=== PATIENT | female | born 1940 | race Caucasian/White ===

== ENCOUNTER 2024-12-03 14:19 | Inpatient (IN) | payer OTHER, SELFPAY ==
[2024-12-03 10:16] VITALS: BP 172/89
[2024-12-03 11:17] VITALS: BMI 45.0
[2024-12-03 11:49] LABS: % Basophils 0.3 % (0-2); % Eosinophils 0.9 % (0-6); % Immature Granulocytes 0.3 % (0-0.5); % Lymphocytes 11.8 % (20.5-51.1); % Monocytes 8.2 % (1.7-9.3); % Neutrophils 78.5 % (42.2-75.2); Absolute Eosinophils 0.1 10^3/uL (0-0.7); Absolute Lymphocytes 1.4 10^3/uL (1.2-3.4); Absolute Neutrophils 9.1 10^3/uL (1.4-6.5); Hematocrit 42.1 % (37.0-47.0); Mean Corp Hgb Conc. 33.3 g/dL (33.0-37.0); Mean Corpuscular Hgb 29.5 pg (27.0-31.0); Mean Corpuscular Volume 88.6 fL (81.0-99.0); Mean Platelet Volume 10.8 fL (7.4-10.4); Nucleated Red Blood Cells % 0 %; Platelet Count 215 10^3/uL (130-400); Red Blood Cell Count 4.75 10^6/uL (4.20-5.40); Red Cell Dist. Width 13.7 % (11.5-14.5); White Blood Cell Count 11.6 10^3/uL (4.8-10.8)
[2024-12-03 12:04] LABS: ALT (SGPT) 18 U/L (0-35); AST (SGOT) 22 U/L (14-36); Alkaline Phosphatase 79 U/L (38-126); Blood Urea Nitrogen 21 mg/dl (7-17); Calcium 9.2 mg/dl (8.4-10.2); Carbon Dioxide 26 mmol/L (22-30); Chloride 105 mmol/L (98-107); Estimated Creatinine Clearance 68 ml/min; Glucose 112 mg/dl (70-99); Potassium 4.1 mmol/L (3.5-5.1); Sodium 139 mmol/L (135-145); Total Bilirubin 1.2 mg/dl (0.2-1.3); Total Protein 6.8 g/dl (6.3-8.2); eGFR > 60.00
[2024-12-03] MEDS: PROTONIX IV 40 MG IV ×2 (13:30→20:49)
--- NOTE | 2024-12-03 13:32 | ED.GENMED ---
History of Present Illness
General
Chief Complaint: Rectal Bleeding
Source: patient
Exam Limitations: none
Time Seen by Provider: 12/03/24 10:44
Nursing documentation reviewed up to this point in time: agreed with
History of Present Illness
History of Present Illness:
Patient presents to ED after 2 episodes of noting blood clots when she went to the bathroom this morning. Patient reports multiple episodes of vomiting and nonbloody diarrhea yesterday, which has improved. Denies previous history of similar
symptoms. Denies dizziness or weakness. Denies shortness of breath. Denies trauma. Denies recent change in medications or diet. Denies taking any blood thinning medications.
Past History
Past History
ED Past Medical History: HTN, Hypothyroidism and Other (Restless leg syndrome)
ED Past Surgical History: Gynecological (d&c) and Orthopedic (12/11 L4-5, S1 laminectomy fusion with bilateral instrumentation by Dr. Quevedo)
Social History
Tobacco: Non-smoker
Alcohol: None
Drug: None
Personal:
Living: alone
Review of Systems
Review of Systems
Allergies reviewed?: Yes
All Other Systems: ROS reviewed and negative except as documented in HPI and ROS
Constitutional: Reports no symptoms
EENT: Reports no symptoms
Respiratory: Reports no symptoms
ABD/GI: Reports nausea, vomiting and diarrhea
Musculoskeletal: Reports no symptoms
Skin: Reports no symptoms
Neurological: Reports no symptoms
Phy Exam
Physical Exam
Physical Exam:
Physical Exam
General: mild distress, not acutely ill. afebrile.
Head: nc/at. eomi
Neck: supple. no meningeal signs.
Heart: s1/s2 regular rate and rhythm
Lungs: no acute respiratory distress. clear bilaterally
Abdomen: normal bowel sounds. not tender. no distention. rectal exam (MAXIMILIAN Garcia tech, at bedside): dark red stool, grossly heme positive
Neuro: alert and oriented x 3. no focal neurological deficits
Skin: no rash
Psychiatric: well kept. interactive and cooperative
Extremities: no edema. no calf tenderness.
Course
Orders/Labs/Results
Orders:
Orders
12/03/24 11:32
ABO2 Urgent
BBK Wristband Number:
Associate notified that ABO2 has been ordered: [id number]
Date: 12/03/24
Time: 12:39
Mail List Librarian ID: [id number]
Complete Blood Count/With Diff Urgent
Comprehensive Metabolic Panel Urgent
12/03/24 12:22
Type+Screen Urgent
BBK Wristband Number:
12/03/24 13:12
Pantoprazole [Protonix IV] 40 mg IV NOW STA
12/03/24 14:05
Admit/Transfer Patient As Directed
Co-Sign Provider:
Level of Care: Inpatient admission
Assign to:: Medical/Surgical
Physician / Group: Blaine Soni
Diagnosis: GI bleed
Reason for Hospitalization: GI bleed
Expected length of stay greater than two midnights?: Yes
ELOS- Estimated Length of Stay in days: 3
I certify the patient meets the requirements for IP care: Yes
PRN Pain Medication Management As Directed
May give lesser potent ordered pain med per pt: Yes
preference::
Protocol:: Medication orders for pain may be administered in a
manner that supports deferring to patient preference
when the pt is:
- Requesting an ordered lesser potent pain medication.
Least to most potent pain medications are defined
as: acetaminophen < NSAID < tramadol < opioids
(morphine, oxycodone, hydromorphone).
- Requesting a lesser dose of the same medication IF
ORDERED.
- Requesting a less intrusive route of administration
if both routes are prescribed by the provider (PO <
IV).
05/01/25 14:06
Code Status As Directed
Resuscitation Status: Full Code
12/03/24 16:21
GASTROINTESTINAL CONSULT Routine
Consulting Provider: Sudeep Ross
Was physician already notified: Yes
Reason for consult: gi bleed
Activity As Directed
Activity Level: As Tolerated
INT (Intravenous Needle Therapy) As Directed
Comment: Place 2 IV catheters of the largest bore possible until stable
Pneumatic Compression Sleeves As Directed
Type: Knee high
Vital Signs As Directed
Frequency: Per unit guidelines
DX Deep Vein Thrombosis Video Routine
12/03/24 18:00
Ropinirole [Requip] 1 mg PO DAILY@1800
12/03/24 20:00
Pantoprazole [Protonix IV] 40 mg IV BID
Propranolol [Inderal] 80 mg PO BID
12/04/24 06:00
Levothyroxine [Synthroid] 50 mcg PO DAILY@0600
12/04/24 07:28
Basic Metabolic Panel IN AM
Complete Blood Count/No Diff IN AM
12/05/24 06:00
Basic Metabolic Panel IN AM
Complete Blood Count/No Diff IN AM
Abnormal Lab Results
12/03/24
11:32
WBC 11.6 H 10^3/uL
(4.8-10.8)
MPV 10.8 H fL
(7.4-10.4)
Absolute Neuts (auto) 9.1 H 10^3/uL
(1.4-6.5)
Absolute Monos (auto) 1.0 H 10^3/uL
(0.1-0.6)
Neutrophils % 78.5 H %
(42.2-75.2)
Lymphocytes % 11.8 L %
(20.5-51.1)
BUN 21 H mg/dl
(7-17)
Glucose 112 H mg/dl
(70-99)
12/03/24 11:32
12/03/24 11:32
Vital Signs
Initial and Last Documented VS:
Initial Vital Signs
Temp Pulse Resp BP Pulse Ox
98.8 F 63 16 172/89 94
12/03/24 10:16 12/03/24 10:16 12/03/24 10:16 12/03/24 10:16 12/03/24 10:16
Last Documented Vital Signs
Temp Pulse Resp BP Pulse Ox
98.5 F 59 20 159/76 95
12/04/24 07:30 12/04/24 08:26 12/04/24 07:30 12/04/24 07:30 12/04/24 08:00
MDM/Problems Addressed
MDM/Problems Addressed:
H&H noted. Patient remains hemodynamically stable. Patient without any further vomiting nor bloody bowel movements in ED.
Discussed with on-call GI physician,
*Critical Care Note
Total Time (30-74mins, 75-104mins- exclusive of procedures): Not Applicable
ED Attending Note
-
Portions of this chart may have been created with voice recognition software.� Occasional wrong word or��sound alike� substitutions may have occurred due to the inherent limitations of voice recognition software.
Discharge Plan
Departure
Patient Disposition: Admit
Date of Disposition: 12/03/24
Time of Disposition: 13:37
Admit to: Telemetry
Presentation/result/management discussed w/ accepting MD/DO: Hospitalist
Discharge Problem:
GI (gastrointestinal bleed)
Interventions
Interventions:
*Risk Screen - Suicide Last Done: 12/03/24 10:16
*General Assessment Last Done: 12/03/24 11:18
*Neglect/Abuse Screening Last Done: 12/03/24 10:16
*ED- Fall Risk Assessment Last Done: 12/03/24 10:16
*ED COVID-19 Vaccine History Last Done: 12/03/24 11:18
*Nursing Disposition Last Done: 12/03/24 16:15
OU-Dotckc-Pnijouwgzt Assessment Last Done: 12/03/24 11:18
ED- Cardiac Assessment Last Done: 12/03/24 13:38
ED- Pulmonary Assessment Last Done: 12/03/24 11:18
Discharge Date and Time
Discharge Date/Time: 12/03/24 16:15
[2024-12-03 13:37] VITALS: BP 165/73
--- NOTE | 2024-12-03 14:12 | CON.GI ---
Addendum entered and electronically signed by Sudeep Ross MD 12/03/24 16:44:
I saw and examined the patient.
The HOME ECONOMIST or PA's note was reviewed and I agree with the note.
Comment:
This is this patient is a 4-year-old woman with a history of hypothyroidism and hypertension who came to the emergency room with nausea and vomiting as well as diarrhea with some bright red blood per rectum. She states that her son also has similar
episodes of diarrhea. Currently she denies any symptoms and is hungry. She did have potentially old ham salad in the recent past.
abd: soft, nontender
impression
Nausea, vomiting and diarrhea likely related to gastroenteritis
Self-limited rectal bleeding versus vaginal bleeding
plan:
Stool studies
Clear liquid diet
Antiemetics if needed
IV fluids.
avoid nsaids
PPI daily
follow hgb
Original Note:
Consultation
-
Date/Time Consultation Requested: 12/03/24 1330
Date/Time Consultation Performed: 12/03/24 1412
Requesting Provider: Dr. Diaz
Performing Provider: Dr. Ross/CRICKET Ledbetter
Reason for Consultation: rectal bleeding
Medical History
Chief Complaint / HPI
Chief Complaint: Nausea, vomiting and rectal bleeding
History of Present Illness:
84-year-old female with past medical history of degenerative disc disease, spinal stenosis, morbid obesity, hypothyroidism, restless leg syndrome and hypertension who presents to the emergency room with acute onset of nausea, vomiting, diarrhea
followed by bright red blood per rectum. We have asked to evaluate for the same. The patient states that yesterday she developed acute onset of nausea and vomiting. This lasted multiple episodes. Prior to her episodes she had consumed ham salad
that she has had for over 1 week. She also had V8. She states that she vomited up her food then episodes of bilious vomiting. She then proceeded to have multiple episodes of brown diarrhea. Her son who also lives with us has diarrhea today. She
states that this morning she woke up with bright red blood per rectum with clots. At that point they proceeded to come to the emergency room. The patient denies any fevers, chills, melena, dysphagia or odynophagia. No early satiety or
unintentional weight loss. She has had no recent travel, no recent antibiotics. She does take ibuprofen 400 mg once to twice a day for the past couple weeks for neck pain. She takes no other NSAID products or anticoagulation. She has never had
an endoscopy or colonoscopy before. She thought that she had rectal bleeding back in 2022 however it turns out she had vaginal bleeding. She has no family history of gastrointestinal malignancy or IBD. Rectal exam performed in the ER showed
bright red blood per rectum. OB positive. In the emergency room she has WBC of 11.6, hemoglobin of 14.0, hematocrit of 42.1, platelets 215, sodium 139, potassium 4.1, BUN of 21, creatinine 0.7, glucose 112, total bilirubin 1.2, AST 22, ALT 18, alk
phos 79, albumin of 4.0 she has had no imaging.
Past Medical History
Past Medical History: Other (Degenerative disc disease with spinal stenosis, morbid obesity, hypothyroidism, restless leg syndrome, hypertension)
Past Surgical History: Other (Quadricep tendon repair, L4-5, S1 laminectomy fusion)
Social History
Tobacco: Non-Smoker
Alcohol: None
Drug: None
Personal:
Living: With Family
Employment: Retired
Family History
Family History: Other (No family hx of GI malignancy or IBD)
Allergies / Home Medications
Allergy/AdvReac Type Severity Reaction Status Date / Time
Penicillins Allergy vaginal Verified 12/17/22 10:40
infection
�Medication �Instructions �Recorded
levothyroxine 50 mcg tablet 50 mcg PO DAILY 01/02/21
(Synthroid)
ropinirole 1 mg tablet 1 mg PO HS 09/14/22
ibuprofen 200 mg tablet (Advil) 400 mg PO Q8HPRN PRN mild pain 12/03/24
lidocaine HCl 4 % topical liquid 1 ea topical DAILYPRN PRN back of 12/03/24
roll-on (Aspercreme (lidocaine neck
HCl))
lisinopril 30 mg tablet 30 mg PO DAILY 12/03/24
propranolol 80 mg tablet 80 mg PO BID 12/03/24
Review of Systems
-
All other systems: A 12 pt ROS was Negative except as stated above in HPI
Vital Signs
Temp Pulse Resp BP Pulse Ox
98.8 F 62 16 165/73 98
12/03/24 10:16 12/03/24 13:37 12/03/24 13:37 12/03/24 13:37 12/03/24 13:37
Physical Exam
Exam
General: No Apparent Distress
HEENT: Anicteric
Respiratory: Clear
Cardiac: Regular Rhythm
GI: Soft, Non Tender, Non Distended and Normal Bowel Sounds
Rectal: Hem Positive (red OB pos per ER)
Skin: Warm and Dry
Neuro: AO x 3
Psych: Calm
Results
WBC 11.6 10^3/uL (4.8-10.8) H 12/03/24 11:32
Hgb 14.0 g/dL (12.0-16.0) 12/03/24 11:32
Hct 42.1 % (37.0-47.0) 12/03/24 11:32
MCV 88.6 fL (81.0-99.0) 12/03/24 11:32
Plt Count 215 10^3/uL (130-400) 12/03/24 11:32
Absolute Neuts (auto) 9.1 10^3/uL (1.4-6.5) H 12/03/24 11:32
Sodium 139 mmol/L (135-145) 12/03/24 11:32
Potassium 4.1 mmol/L (3.5-5.1) 12/03/24 11:32
Chloride 105 mmol/L (98-107) 12/03/24 11:32
Carbon Dioxide 26 mmol/L (22-30) 12/03/24 11:32
BUN 21 mg/dl (7-17) H 12/03/24 11:32
Creatinine 0.7 mg/dL (0.6-1.0) 12/03/24 11:32
Calcium 9.2 mg/dl (8.4-10.2) 12/03/24 11:32
Total Bilirubin 1.2 mg/dl (0.2-1.3) 12/03/24 11:32
AST 22 U/L (14-36) 12/03/24 11:32
ALT 18 U/L (0-35) 12/03/24 11:32
Alkaline Phosphatase 79 U/L (38-126) 12/03/24 11:32
Diagnostic Image Results:
none
Prior GI Procedures:
EGD: never
Colonoscopy: never
Assessment / Plan
-
84 year-old female with past medical history of degenerative disc disease, spinal stenosis, morbid obesity, hypothyroidism, restless leg syndrome and hypertension who presents to the emergency room with acute onset of nausea, vomiting, diarrhea
followed by bright red blood per rectum. We have asked to evaluate for the same. The patient states that yesterday she developed acute onset of nausea and vomiting. This lasted multiple episodes. Prior to her episodes she had consumed ham salad
that she has had for over 1 week. She also had V8. She states that she vomited up her food then episodes of bilious vomiting. She then proceeded to have multiple episodes of brown diarrhea. Her son who also lives with us has diarrhea today. She
states that this morning she woke up with bright red blood per rectum with clots, 2 episodes. At that point they proceeded to come to the emergency room. Rectal exam performed in the ER showed bright red blood per rectum. OB positive. In the
emergency room she has WBC of 11.6, hemoglobin of 14.0, hematocrit of 42.1, platelets 215, sodium 139, potassium 4.1, BUN of 21, creatinine 0.7, glucose 112, total bilirubin 1.2, AST 22, ALT 18, alk phos 79, albumin of 4.0 she has had no imaging.
Impression:
Rectal bleeding after N/V/D, likely infectious, foodborne or viral gastroenteritis
-son who lives with her not feeling well with diarrhea
Plan:
-Monitor Hgb
-Check stool culture, norovirus
-Ok for clear liquid no red, patient without any pain and would like to eat
-Add Pantoprazole 40 mg daily as patient has been on Ibuprofen 400 mg daily to BID for a couple weeks
-If with continued active bleeding would obtain CTA Abd/Pelvis, although no active bleeding at this time.
-Repeat routine labs in am
-Further recommendations to be forthcoming.
-
-
Thank you for consultation and allowing me to participate in the patient's care. Please call the environmental director GI physician during the after hours with any questions or concerns.
--- NOTE | 2024-12-03 14:25 | HPS.HSE ---
Family Physician
-
Family Physician: Issac Hooks
Chief Complaint
-
Nausea vomiting/blood in stool
History of Present Illness
Patient is 84-year-old female with past medical history of essential hypertension, hypothyroidism, degenerative joint disease of spine, restless leg syndrome came to ER with new onset of nausea vomiting and blood in stool. All symptoms started with
patient having vomiting and diarrhea yesterday. No associated abdominal pain or fever. In the morning today patient noticed some blood clot in ER patient had some more lon blood containing bowel movement. Patient denies of having any previous
history of similar episodes in the past. No no recent travel/sick contact. During the visit in ER patient resting comfortably and not voicing any active abdominal pain/nausea. No cardiopulmonary complaints.
Medical History
Past Medical History
Past Medical History: Reports Other
Additional Past Medical History:
essential hypertension, hypothyroidism, degenerative joint disease of spine, restless leg syndrome
Past Surgical History: Reports Other
Social History
Tobacco: Non-smoker
Alcohol: None
Drug: None
Family History
Family History: Not pertinent
Allergies / Home Medications
Allergies reflects when Allergies were last updated in [facility].
Home Medications with original date entered in [facility]
Allergy/Medication List:
Allergies
Allergy/AdvReac Type Severity Reaction Status Date / Time
Penicillins Allergy vaginal Verified 12/17/22 10:40
infection
Home Medications
levothyroxine 50 mcg tablet (Synthroid) 50 mcg PO DAILY 01/02/21
ropinirole 1 mg tablet 1 mg PO HS 09/14/22
ibuprofen 200 mg tablet (Advil) 400 mg PO Q8HPRN PRN mild pain 12/03/24
lidocaine HCl 4 % topical liquid roll-on (Aspercreme (lidocaine HCl)) 1 ea topical DAILYPRN PRN back of neck 12/03/24
lisinopril 30 mg tablet 30 mg PO DAILY 12/03/24
propranolol 80 mg tablet 80 mg PO BID 12/03/24
Review of Systems
-
A 12 point ROS was completed and negative except as noted: Yes
Physical Exam
Vital Signs
Vital Signs
Temp Pulse Resp BP Pulse Ox
98.8 F 62 16 165/73 98
12/03/24 10:16 12/03/24 13:37 12/03/24 13:37 12/03/24 13:37 12/03/24 13:37
Physical Exam
General: No Apparent Distress
HEENT: Atraumatic
Respiratory: Clear
Cardiac: S1/S2 and Regular Rhythm; No Murmur or Rub
GI: Soft, Non Tender and Non Distended; No Organomegaly
Rectal: Deferred by Provider
Musculoskeletal: No Clubbing, No Cyanosis and No Edema
Skin: No Rash
Neuro: Awake, Alert, Oriented and Nonfocal/grossly intact
Laboratory Results
-
12/03/24 11:32
12/03/24 11:32
Laboratory Results
Total Bilirubin 1.2 mg/dl (0.2-1.3) 12/03/24 11:32
AST 22 U/L (14-36) 12/03/24 11:32
ALT 18 U/L (0-35) 12/03/24 11:32
Alkaline Phosphatase 79 U/L (38-126) 12/03/24 11:32
Impression/Plan
-
1. Painless hematochezia
Diverticular disease vs ischemic colitis
Diarrhea
- Bright red blood stool mixed noted in ER, heme test positive
- Hemoglobin stable, expect to drift down
- Suspected diverticular in nature, no significant abdominal pain/history of vascular disease, ischemic colitis remains in differential
- GI evaluating in ER, defer need of abdominal imaging
- Maintain n.p.o. for now
- Patient has been taking ibuprofen for last few weeks for neck pain. Maintained on IV twice daily PPI
2. Nausea/vomiting
- Denies sick contacts/travel/food change
- If persist will require abdominal imaging
- Symptomatic care with as needed Zofran
3. Essential HTN
- Resume home regimen of lisinopril/propranolol with holding parameter
4. Hypothyroidism
- continue on levothyroxine
DVT PPX - scd
Full code
Total time spent : 77 mins
I personally saw and examined the patient.
I have reviewed all diagnostic interpretations and treatment plans as written.
Time includes patient management by me, time spent at the patients bedside, time to review lab and imaging results, discussing patient care, documentation in the medical record, and time spent with the family or caregiver and discussing care plan
with RN/Consultants.
[2024-12-03 16:25] VITALS: BP 182/76; BMI 43.4
--- NOTE | 2024-12-03 16:50 | PTCARENOTE ---
Pt transferred from ED. Pt ambulated into room with assistance. Pt AAOX3, able to make needs known. Hat put in bathroom for stool sample. Pt oriented to unit, call garcia within reach, bed in lowest position. Will continue with current plan.
[2024-12-03] MEDS: REQUIP 1 MG PO (17:38)
[2024-12-03] MEDS: INDERAL 80 MG PO (20:48)
[2024-12-03] MEDS: NSS (PRESERVATIVE FREE) 10 ML IV (21:07)
[2024-12-03 23:17] VITALS: BP 156/56
[2024-12-04] MEDS: SYNTHROID 50 MCG PO (05:40)
[2024-12-04 07:30] VITALS: BP 159/76
[2024-12-04 07:51] LABS: Hematocrit 39.9 % (37.0-47.0); Hemoglobin 13.3 g/dL (12.0-16.0); Mean Corp Hgb Conc. 33.3 g/dL (33.0-37.0); Mean Corpuscular Hgb 29.7 pg (27.0-31.0); Mean Corpuscular Volume 89.1 fL (81.0-99.0); Mean Platelet Volume 10.8 fL (7.4-10.4); Platelet Count 203 10^3/uL (130-400); Red Blood Cell Count 4.48 10^6/uL (4.20-5.40); Red Cell Dist. Width 13.5 % (11.5-14.5); White Blood Cell Count 7.9 10^3/uL (4.8-10.8)
[2024-12-04] MEDS: INDERAL PO (08:26)
[2024-12-04] MEDS: PROTONIX IV 40 MG IV (08:26)
[2024-12-04] MEDS: ZESTRIL 30 MG PO (08:26)
[2024-12-04] MEDS: NSS (PRESERVATIVE FREE) 10 ML IV (08:26)
[2024-12-04 09:12] LABS: Blood Urea Nitrogen 17 mg/dl (7-17); Calcium 8.9 mg/dl (8.4-10.2); Carbon Dioxide 26 mmol/L (22-30); Chloride 103 mmol/L (98-107); Estimated Creatinine Clearance 66 ml/min; Glucose 84 mg/dl (70-99); Potassium 3.8 mmol/L (3.5-5.1); Sodium 139 mmol/L (135-145); eGFR > 60.00
--- NOTE | 2024-12-04 11:34 | CM ---
CM reviewed chart, patient seen bedside, initial assessment completed. Patient resides with her son in a ranch style home, two steps to enter. Patient denies the use of DME, reports VN in 2020 after knee surgery, denies SNF. Patient confirms PCP
Issac Hooks, pharmacy [facility], confirms prescription coverage. Patient reports her son will provide transportation home. IMM verbally reviewed, provided with copy, placed in chart. CM will continue to follow for all discharge planning
needs.
Plan; home no needs, son to transport.
[2024-12-04 12:47] VITALS: BP 162/62
--- NOTE | 2024-12-04 14:23 | W.PN.HOSP.TC ---
Today's Communication/Plan
-
d/c home
Assessment / Plan
Assessment / Plan
1. Painless hematochezia
Viral gastro-enteritis
- Bright red blood stool mixed noted in ER, heme test positive
- Hemoglobin remains stable post admission at 13, no repeat diarrhea/blood in stool
- Stool studies ordered although patient not able to provide any stool sample as no further diarrhea
- Discussed with GI and patient cleared to be discharged today home with follow-up with primary care physician in office
- Patient to be continued on preadmission medication regimen
2. Nausea/vomiting - resolved
- Denies sick contacts/travel/food change
- If persist will require abdominal imaging
- Symptomatic care with as needed Zofran
3. Essential HTN
- Resume home regimen of lisinopril/propranolol with holding parameter
4. Hypothyroidism
- continue on levothyroxine
DVT PPX - scd
Full code
More than 30 minutes spent in discharge including
Final examination of the patient
Summarizing hospital stay
Instructions for continuing care to all relevant caregivers
Preparation of discharge records, prescriptions, and referral forms
Total time spent (in minutes):38 mins
Anticipated Discharge: Today
Subjective/Interval History
-
Date of Service: December 04, 2024
no complains overnight
no repeat diarrhea/blood in stool
Objective Data
-
Labs:
Laboratory Results
12/04/24
07:28
WBC 7.9
Hgb 13.3
Hct 39.9
Plt Count 203
Sodium 139
Potassium 3.8
Chloride 103
Carbon Dioxide 26
BUN 17
Creatinine 0.7
Glucose 84
Calcium 8.9
Vital Signs:
Vital Signs
Temp Pulse Resp BP Pulse Ox
97.8 F 66 20 162/62 97
12/04/24 12:47 12/04/24 12:47 12/04/24 12:47 12/04/24 12:47 12/04/24 12:47
I&O
12/03/24 12/04/24 12/05/24
06:59 06:59 06:59
Intake Total 240 / 240
Balance 240 / 240
Review of Systems
-
Respiratory: Reports No Symptoms
Cardiac: Reports No Symptoms
Abdomen/GI: Reports No Symptoms
Physical Exam
-
General: No Apparent Distress and Comfortable
HEENT: Negative Oxygen
Respiratory: Clear to Auscultation
Cardiac: Regular Rhythm and S1/S2; Negative Murmur or Rub
GI: Soft, Nontender, Nondistended and Normal Bowel Sounds
Musculoskeletal: No Edema
Neuro: Awake, Alert, Oriented, No Motor Deficits and Nonfocal/Grossly Intact
Psych: Calm
--- NOTE | 2024-12-05 07:51 | W.DCSUMMARY ---
Addendum entered and electronically signed by Blaine Soni MD 12/06/24 14:15:
Patient date of discharge is 12/04/2024
Original Note:
Discharge Summary
Discharge Data
Date of Admission: 12/03/24
Date of Discharge: 12/03/24
-
Pending Results: No
Hospital Course
Discharging Physician : Dr Blaine Soni
Disposition : To home
Primary care physician : Dr Issac Hooks
Principal Discharge diagnosis :
Painless hematochezia
Viral gastroenteritis
Nausea/vomiting
Chronic Discharge diagnosis :
Essential hypertension
Hypothyroidism
Hospital Course :
Patient is a 84-year-old female with mentioned past medical history came to ER with acute onset of nausea vomiting diarrhea and some blood in the stool. Patient denied of having any sick contact or any dietary changes. In ER patient lab workup
showing stable hemoglobin. GI was involved in care based on presentation patient was felt to having likely colitis versus gastroenteritis. Patient was admitted for further monitoring. Stool studies were ordered to rule out any pathologic
organisms although patient diarrhea resolved and was not able to provide any stool sample. Patient nausea vomiting also rapidly improved with symptomatic care. No further episodes of diarrhea or blood containing stool overnight. Patient was
discharged to home at this point with follow-up with primary care physician in the office.
Important imaging findings :
None
Procedure findings :
None
Discharge Plan
-
Patient Disposition: Home (Routine Discharge)
Discharge Diagnosis/Procedures: Viral gastroenteritis, Blood in stool
Condition: Fair
Diet: Regular
Activity: As tolerated
Driving Restrictions: As prior to admission
Bathing Restrictions: OK to Shower
Referrals:
Issac Hooks, DO [Family Provider] - in one week
Prescriptions:
Continued
levothyroxine [Synthroid] 50 MCG tablet
50 mcg PO DAILY
ropinirole 1 mg Tablet
1 mg PO HS
propranolol 80 mg Tablet
80 mg PO BID
lisinopril 30 mg Tablet
30 mg PO DAILY
lidocaine HCl [Aspercreme (lidocaine HCl)] 4 % Liquid Roll-On
1 ea TOPICAL DAILYPRN PRN (Reason: back of neck)
Discontinued
ibuprofen [Advil] 200 mg Tablet
400 mg PO Q8HPRN PRN (Reason: mild pain)
Discharge Orders:
Discharge Patient (As Directed); Ordered 12/04/24
Ordered By: Blaine Soni
Discharge Date and Time
Discharge Date/Time: 12/04/24 13:49
Print Language: [place]
== END 2024-12-04 13:49 | disposition home or self-care (01) | DRG 378 ==
LOC: 4 WEST ACU 14:19
PROVIDERS: ADMITTING PHYSICIAN Hospitalist; CONSULT PHYSICIAN Internal Medicine; EMERGENCY PHYSICIAN Emergency Medicine; FAMILY PHYSICIAN Internal Medicine
DX: K92.1 Melena (principal); Z68.41 Body mass index [BMI] 40.0-44.9, adult; A08.4 Viral intestinal infection, unspecified; E03.9 Hypothyroidism, unspecified; G25.81 Restless legs syndrome; I10 Essential (primary) hypertension; E66.01 Morbid (severe) obesity due to excess calories; M54.2 Cervicalgia; Z98.1 Arthrodesis status; Z79.890 Hormone replacement therapy; Z88.0 Allergy status to penicillin
CPT/HCPCS: 80048; 80053; 85025; 85027; 86850; 86900; 86901; 96374; 99285

== ENCOUNTER → 2025-01-13 16:08 | Outpatient (REF) | payer OTHER, SELFPAY ==
[2025-01-13 16:51] LABS: % Basophils 0.5 % (0-2); % Eosinophils 2.8 % (0-6); % Immature Granulocytes 0.4 % (0-0.5); % Lymphocytes 21.9 % (20.5-51.1); % Monocytes 8.4 % (1.7-9.3); Absolute Eosinophils 0.2 10^3/uL (0-0.7); Absolute Lymphocytes 1.8 10^3/uL (1.2-3.4); Absolute Monocytes 0.7 10^3/uL (0.1-0.6); Absolute Neutrophils 5.4 10^3/uL (1.4-6.5); Hematocrit 40.6 % (37.0-47.0); Hemoglobin 13.4 g/dL (12.0-16.0); Mean Corpuscular Hgb 29.3 pg (27.0-31.0); Mean Corpuscular Volume 88.8 fL (81.0-99.0); Nucleated Red Blood Cells % 0 %; Platelet Count 302 10^3/uL (130-400); Red Blood Cell Count 4.57 10^6/uL (4.20-5.40); Red Cell Dist. Width 13.4 % (11.5-14.5); White Blood Cell Count 8.1 10^3/uL (4.8-10.8)
[2025-01-13 17:13] LABS: ALT (SGPT) 17 U/L (0-35); AST (SGOT) 21 U/L (14-36); Albumin 4.1 g/dl (3.5-5.0); Alkaline Phosphatase 80 U/L (38-126); Blood Urea Nitrogen 16 mg/dl (7-17); Calcium 9.5 mg/dl (8.4-10.2); Carbon Dioxide 26 mmol/L (22-30); Chloride 108 mmol/L (98-107); Glucose 104 mg/dl (70-99); Potassium 4.3 mmol/L (3.5-5.1); Sodium 141 mmol/L (135-145); Total Bilirubin 0.6 mg/dl (0.2-1.3); Total Protein 6.9 g/dl (6.3-8.2); eGFR > 60.00
[2025-01-13 17:23] LABS: Troponin I < 0.012 ng/ml
== END ==
LOC: REG 16:08
PROVIDERS: ATTENDING PHYSICIAN Nurse Practitioner Family; FAMILY PHYSICIAN Internal Medicine
DX: I10 Essential (primary) hypertension (principal); R35.0 Frequency of micturition; I16.0 Hypertensive urgency
CPT/HCPCS: 36415; 80053; 84443; 84484; 85025; 93005

== ENCOUNTER → 2025-01-18 12:28 | Outpatient (REF) | payer OTHER, SELFPAY | LOC: RAD 12:28 | PROVIDERS: ATTENDING PHYSICIAN Nurse Practitioner Family; FAMILY PHYSICIAN Internal Medicine | DX: M54.2 Cervicalgia (principal) | CPT/HCPCS: 72052 ==